=== PATIENT | male | born 1980 | race Caucasian/White ===

== ENCOUNTER 2018-01-04 17:35 | Emergency (ER) | payer MEDICAID, OTHER ==
[~2018-01-04] VITALS: Ht 180.3 cm; Wt 70.5 kg
[~2018-01-04 17:35] MED LIST: CLIN-80 PO; IBUP-1984 PO
[2018-01-04 18:58] LABS: CLARITY,URINE CLOUDY (Clear); COLOR,URINE YELLOW (Yellow); GLUCOSE, URINE NEGATIVE (Neg); KETONES,URINE NEGATIVE (Neg); LEUKOCYTE ESTERASE ,URINE SMALL (Neg); NITRITES, URINE NEGATIVE (Neg); OCCULT BLOOD,URINE NEGATIVE (Neg); PH,URINE 6.5 (4.8-8.0); PROTEIN,URINE TRACE mg/dl (Neg); UROBILINOGEN,URINE 0.2 E.U/dL (0.2-1.0)
[2018-01-04 19:01] LABS: UA COLLECTION TYPE CLN CATCH MIDSTREAM
[2018-01-04] MEDS ORDERED: CefTRIAXone 250MG IM Kit w/LIDOcaine IM ONE (19:05)
[2018-01-04] MEDS ORDERED: metroNIDAZOLE 500mg tablet PO ONE (19:05)
[2018-01-04] MEDS ORDERED: azithromycin 250mg tablet PO ONE (19:05)
[2018-01-04 19:10] LABS: BACTERIA,URINE FEW /HPF (Neg); MUCUS STRANDS MODERATE /LPF (Neg); RBC,URINE NONE SEEN /HPF (0-2); SQUAMOUS EPITHELIAL CELL,UR FEW /LPF (FEW); WBC CLUMPS,URINE MODERATE /HPF (NEGATIVE); WBC,URINE TNTC /HPF (0-4)
[2018-01-04 20:00] VITALS: BP 115/72
== END 2018-01-04 20:01 | disposition home or self-care (01) ==
LOC: ER 17:36
DX: A64 Unspecified sexually transmitted disease (principal); Z79.899 Other long term (current) drug therapy
CPT/HCPCS: 36415; 81001; 87088; 87491; 87591; 96372; 99284; J0696; J3490; 87077; 87185; 87252

== ENCOUNTER 2018-05-07 11:28 | Emergency (ER) | payer OTHER ==
[~2018-05-07] VITALS: Ht 180.3 cm; Wt 64.0 kg
[~2018-05-07 11:28] MED LIST changes: -CLIN-80 PO; +CLIN300C85 PO
[2018-05-07 11:39] VITALS: BP 125/71
[2018-05-07] MEDS ORDERED: SULF1TAB49 PO (13:11)
== END 2018-05-07 13:51 | disposition home or self-care (01) ==
LOC: ER 11:28
DX: L03.012 Cellulitis of left finger (principal); Z79.01 Long term (current) use of anticoagulants; Z79.1 Long term (current) use of non-steroidal anti-inflammatories (NSAID)
CPT/HCPCS: 99283

== ENCOUNTER 2019-09-22 13:48 | Emergency (ER) | payer OTHER ==
[~2019-09-22] VITALS: Ht 180.3 cm; Wt 63.8 kg
[~2019-09-22 13:48] MED LIST changes: +CLIN-90 PO; -CLIN300C85 PO
[2019-09-22 15:17] VITALS: BP 109/72
== END 2019-09-22 15:18 | disposition home or self-care (01) ==
LOC: ER 13:48
DX: B34.9 Viral infection, unspecified (principal); F17.200 Nicotine dependence, unspecified, uncomplicated; Z79.899 Other long term (current) drug therapy
CPT/HCPCS: 93005; 99283

== ENCOUNTER 2021-01-03 23:17 | Emergency (ER) | payer OTHER ==
[~2021-01-03] VITALS: Ht 180.3 cm; Wt 50.4 kg
[~2021-01-03 23:17] MED LIST changes: -CLIN-90 PO; +CLIN-97 PO
[2021-01-03 23:19] VITALS: BP 117/68
== END 2021-01-04 00:30 | disposition home or self-care (01) ==
LOC: ER 23:17
DX: M25.562 Pain in left knee (principal); Z79.2 Long term (current) use of antibiotics; Z79.899 Other long term (current) drug therapy
CPT/HCPCS: 29505; 73564; 99283

== ENCOUNTER 2021-08-17 17:12 | Emergency (ER) | payer OTHER ==
[~2021-08-17] VITALS: Ht 180.3 cm; Wt 62.8 kg
[2021-08-17 17:19] VITALS: BP 129/82
[2021-08-17] MEDS ORDERED: PENI500T2 PO (19:47)
== END 2021-08-17 19:55 | disposition home or self-care (01) ==
LOC: ER 17:13
DX: K08.89 Other specified disorders of teeth and supporting structures (principal); K00.7 Teething syndrome; Z79.2 Long term (current) use of antibiotics; Z79.899 Other long term (current) drug therapy
CPT/HCPCS: 99283

== ENCOUNTER 2022-10-10 20:51 | Emergency (ER) | payer OTHER ==
[~2022-10-10] VITALS: Ht 180.3 cm; Wt 66.0 kg
[2022-10-10 20:55] VITALS: BP 112/71
== END 2022-10-11 01:43 | disposition left against medical advice (07) ==
LOC: ER 20:52
DX: M79.672 Pain in left foot (principal); M79.671 Pain in right foot; Z53.21 Procedure and treatment not carried out due to patient leaving prior to being seen by health care provider
CPT/HCPCS: 73630; 99283

== ENCOUNTER 2022-10-11 12:16 | Emergency (ER) | payer OTHER ==
[~2022-10-11] VITALS: Ht 180.3 cm; Wt 67.3 kg
[2022-10-11] MEDS ORDERED: ibuprofen 200mg tablet PO ONE (14:35)
[2022-10-11 15:12] VITALS: BP 113/78
== END 2022-10-11 15:16 | disposition home or self-care (01) ==
LOC: ER 12:17
DX: M79.662 Pain in left lower leg (principal); Z91.030 Bee allergy status
CPT/HCPCS: 99282; L4360